=== PATIENT | female | born 1955 | race Caucasian/White ===

== ENCOUNTER → 2019-03-05 | Outpatient (CLI) | payer MEDICARE, OTHER ==
[~2019-03-05] MED LIST: CALCIUM 500 MG1 EAC1 PO; FLAXSEED1000 MG PO; FOSAMAX 70 MG T70 MG PO; LETROZOLE2.5 MG PO; LISINOPRIL10 MG PO; PERCOCET 5-3251 EACH PO; VITAMIN B122500 MCG PO; VITAMIN D3400 UNIT PO
== END ==
LOC: M.ULTRA 10:59
DX: M79.605 Pain in left leg (principal); M25.562 Pain in left knee; Z88.1 Allergy status to other antibiotic agents; Z88.0 Allergy status to penicillin; Z91.09 Other allergy status, other than to drugs and biological substances

== ENCOUNTER → 2019-09-06 | Outpatient (CLI) | payer MEDICARE, OTHER | LOC: M.ULTRA 15:00 | DX: G45.9 Transient cerebral ischemic attack, unspecified (principal); R42 Dizziness and giddiness ==